=== PATIENT | male | born 1990 | race Hispanic/Latino ===

== ENCOUNTER → 2019-08-19 | Outpatient (CLI) | payer MEDICARE ==
[~2019-08-19] MED LIST: GADODIAMIDE 10 MMOL/20 ML VIAL IV ONE; MIDAZOLAM HCL 1 MG/ML 2ML VIAL ONE
--- NOTE | 2019-08-19 09:15 | NUR ---
MRI PITUITARY GLAND W/WO WITH CONSCIOUS SEDATION PATIENT TOLERATED PROCEDURE WELL. HEPLOCK REMOVED AND PATIENT RECOVERED IN RADIOLOGY ROOM. DISCHARGE INSTRUCTIONS GIVEN TO CAREGIVER AND SHE VERBALIZED UNDERSTANDING. DISCHARGED VIA W/C . AAO X3 WITH NO C/O DISCOMFORT.
== END | disposition home or self-care (01) ==
LOC: RAH 07:24
PROVIDERS: ATTEND Family Medicine
DX: F84.0 Autistic disorder (principal); R89.1 Abnormal level of hormones in specimens from other organs, systems and tissues; G80.9 Cerebral palsy, unspecified
CPT/HCPCS: 70553; A9579; J2250; 99152; 99153